=== PATIENT | female | born 1940 | race Caucasian/White ===

== ENCOUNTER 2016-12-04 13:33 | Emergency (ER) | payer MEDICARE ==
[2016-12-04 14:40] VITALS: BP 185/94
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
== END 2016-12-04 15:55 | disposition home or self-care (01) ==
LOC: JP.ED 13:33
DX: S40.021A Contusion of right upper arm, initial encounter (principal); Z87.891 Personal history of nicotine dependence; E78.00 Pure hypercholesterolemia, unspecified; I10 Essential (primary) hypertension; Z98.49 Cataract extraction status, unspecified eye; Z79.899 Other long term (current) drug therapy; Z91.018 Allergy to other foods; Y04.2XXA Assault by strike against or bumped into by another person, initial encounter
CPT/HCPCS: 99283

== ENCOUNTER 2019-11-24 13:52 | Emergency (ER) | payer MEDICARE ==
[2019-11-24] MEDS ORDERED: Lidocaine 1% with EPINEPHrine 1:100,000 50 ML MDV SUBCUT STA (14:59)
[2019-11-24] MEDS ORDERED: Bacitracin Oint 1 GM U/D Packet TOP ONE (14:59)
--- NOTE | 2019-11-24 15:04 | EDM.PDOC ---
ED HPI GENERAL MEDICAL PROBLEM - General Chief Complaint: ENT Problem Stated Complaint: BLOODY NOSE FELL Time Seen by Provider: 11/24/19 14:48 Source of Information: Reports: Patient, Family, RN Notes Reviewed History Limitations: Reports: No Limitations - History of Present Illness INITIAL COMMENTS - FREE TEXT/NARRATIVE: 79-year-old female presents emergency department today following a fall at home unfortunately she fell tripped at home on the carpet directly onto her face she was unable to catch herself she had a significant nosebleed but that was able to stop by the time she arrived to the emergency department she also has a small laceration on her lip is complaining of some neck pain and facial pain, denies any loss of consciousness - Related Data Allergies Allergy/AdvReac Type Severity Reaction Status Date / Time doxycycline Allergy Nausea and Verified 11/24/19 14:27 Vomiting Penicillins Allergy Hives Verified 12/04/16 14:55 mixed seafoods Allergy Nausea and Uncoded 12/04/16 14:55 Vomiting Home Meds: Home Meds Losartan [Cozaar] 80 mg PO DAILY 12/04/16 [History] Fluticasone Propion/Salmeterol [Wixela 500-50 Inhub] 1 puff INH BEDTIME 11/24/19 [History] Montelukast Sodium 1 tab PO DAILY 11/24/19 [History] Past Medical History HEENT History: Reports: Cataract Other HEENT History: Macular hole closed by surgery Cardiovascular History: Reports: High Cholesterol, Hypertension Respiratory History: Reports: Bronchitis, Recurrent 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: - Past Surgical History HEENT Surgical History: Reports: Cataract Surgery Social & Family History - Tobacco Use Smoking Status *Q: Never Smoker - Caffeine Use Caffeine Use: Reports: Coffee ED ROS GENERAL - Review of Systems Review Of Systems: See Below Constitutional: Reports: No Symptoms HEENT: Reports: Nosebleed Respiratory: Reports: No Symptoms Cardiovascular: Reports: No Symptoms GI/Abdominal: Reports: No Symptoms Musculoskeletal: Reports: No Symptoms Skin: Reports: No Symptoms ED EXAM, UPPER BACK/NECK PAIN - Physical Exam Exam: See Below Text/Narrative:: Primary survey GCS 15 airways open patent and clear lungs are clear to auscultation bilaterally cardiovascular demonstrates regular rate and rhythm S1- S2 Secondary survey General: Female, not in any distress GCS 15, alert and oriented x3 HEENT: head is ecchymosis is appreciated around both eyes as well as the bridge of the nose normocephalic, eyes pupils equal round reactive to light, sclera clear no conjun ctivitis appreciated extraocular eye movements intact. Ears tympanic membranes clear and spence landmarks and light reflex are present bilaterally canals are clear. Nose no septal deviation, nares are clear, no blood present. Mouth mucosa is moist and pink no erythema or exudate noted in soft palate, tongue is midline uvula is midline, dentition is intact small half centimeter laceration is appreciated superior lip right side. Neck: Supple no thyromegaly no tracheal deviation. NO posterior midline C-spine tenderness however the neck is painful with movement NO evidence of intoxication GCS > 14 No focal neurological deficit NO distracting injury Nodes: Cervical nodes subclavicular nodes nontender no palpable lymphadenopathy noted. Lungs: clear to auscultation bilaterally with symmetrical respirations, no adventitious noise appreciated. CV: Regular rate and rhythm S1 and S2 appreciated no murmurs rubs or gallops noted. Abdomen: Soft, nontender, no palpable masses or organomegaly appreciated, no distention no guarding bowel sounds are present, [scars ]. Neuro: Cranial nerves II test with pupillary light reflex 4 mm to 2 mm bilaterally, CN III test pupillary constriction, lid elevation and eye abduction bilaterally, CN IV downward movement of eyes bilaterally, CN V good jaw movement, CN lateral deviation of the eyes bilaterally to finger movement, CN VII symmetrical smile shows teeth without difficulty, CN VIII pass finger rub to ears bilaterally, CN IX adequate voice and tone, CN X adequate voice and tone no difficulty swallowing, CN XI can shrug shoulders without difficulty, CN XII can stick tongue out without difficulty, cranial nerves II to XII intact as tested, Skin: Warm and dry, intact Extremities: No lower extremity edema appreciated, pedal pulse is +2. ED LACERATION/WOUND PROCEDURES - Laceration/Wound Repair Other Laceration/Wound Length In cm: 0.5 Appearance: Subcutaneous, Irregular Anesthetic Type: Local Local Anesthesia - Lidocaine (Xylocaine): 1% with EPI Local Anesthetic Volume: 1cc Skin Prep: Saline Saline Irrigation Total cc's: 30 Wound Exploration, Debridement, Revision: Wound Explored, In a Bloodless Field, Explored to Base Suture Size: 5-0 # of Sutures: 1 Suture Type: Interrupted, Other (Vicryl) Sterile Dressing Applied: Nurse Tetanus Status Addressed: Yes Complications: None Course - Vital Signs Last Recorded V/S: Last Vital Signs Temp 97.3 F 11/24/19 14:37 Pulse 85 11/24/19 14:37 Resp 18 11/24/19 14:37 BP 191/93 H 11/24/19 14:37 Pulse Ox 100 11/24/19 14:37 - Orders/Labs/Meds Meds: Medications Discontinued Medications Generic Name Dose Route Start Last Admin Trade Name John PRN Reason Stop Dose Admin Bacitracin 1 dose 11/24/19 14:59 11/24/19 15:08 Bacitracin Oint 1 Gm TOP 11/24/19 15:00 1 dose ONETIME ONE Administration Lidocaine/Epinephrine 20 ml 11/24/19 14:59 11/24/19 15:07 Xylocaine 1% With Epinephrine 1:100,000 SUBCUT 11/24/19 15:00 20 ml NOW STA Administration Departure - Departure Time of Disposition: 16:50 Disposition: Home, Self-Care 01 Condition: Fair Clinical Impression: Nasal bones, closed fracture Qualifiers: Encounter type: initial encounter Qualified Code(s): S02.2XXA - Fracture of nasal bones, initial encounter for closed fracture Head injury Qualifiers: Encounter type: initial encounter Qualified Code(s): S09.90XA - Unspecified injury of head, initial encounter Lip laceration Qualifiers: Encounter type: initial encounter Qualified Code(s): S01.511A - Laceration without foreign body of lip, initial encounter - Discharge Information Instructions: Laceration Care, Adult Referrals: PCP,None [Primary Care Provider] - Forms: ED Department Discharge Additional Instructions: Use Tylenol Motrin as needed for pain control recommend follow-up with primary care in the next 3 to 5 days for reevaluation at which time her sutures could be removed, follow the wound care instruction sheet Sepsis Event Note (ED) - Evaluation Sepsis Screening Result: No Definite Risk - Focused Exam Vital Signs: Vital Signs Temp Pulse Resp BP Pulse Ox 11/24/19 14:37 97.3 F 85 18 191/93 H 100 11/24/19 14:23 97.3 F 85 18 191/93 H 100 - Assessment/Plan Plan: Assessment Acuity = acute Site and laterality = head trauma, mildly comminuted nasal bone fracture on the right, lip laceration Etiology = secondary to trauma Manifestations = none Location of injury = Home Lab values = CT scan describes fracture above Plan I did review films with her provided her disc have her follow-up with primary care in the next 3 to 5 days for reevaluation suture removal in 3 to 5 days This note was dictated using [employer] voice recognition software please call with any questions on syntax or grammar.
--- NOTE | 2019-11-24 16:21 | CRLCT ---
INDICATION : Trauma TECHNIQUE : Noncontrast CT scan of brain. FINDINGS: No acute intra or extra-axial hemorrhage. The ventricles and sulci are normal size, shape and configuration. No visualized intracranial mass or additional abnormal attenuation. Bony calvarium is normal. IMPRESSION : No significant intracranial radiographic abnormality. Please note that all CT scans at this facility use dose modulation, iterative reconstruction, and/or weight-based dosing when appropriate to reduce radiation dose to as low as reasonably achievable. Dictated by Sidney Dejesus MD @ Nov 24 2019 4:13PM Signed by Dr. Sidney Dejesus @ Nov 24 2019 4:19PM
--- NOTE | 2019-11-24 16:25 | CRLCT ---
INDICATION: Facial trauma. TECHNIQUE: CT scan of the facial bones. No intravenous contrast. Sagittal and coronal reconstructions. Soft tissue and bone windows. FINDINGS: Osseous structures: There are bilateral minimally displaced slightly angulated / comminuted nasal fractures. These are at the distal portion of the nasal bone. No significant displacement. Soft tissues: Right anterior nasal soft tissue swelling and infra orbital preseptal soft tissue swelling. Orbits: Normal. Sinuses: Normal. IMPRESSION: 1. Mildly comminuted nondisplaced distal nasal fractures. 2. Extensive facial soft tissue swelling nasal and right infraorbital. Please note that all CT scans at this facility use dose modulation, iterative reconstruction, and/or weight-based dosing when appropriate to reduce radiation dose to as low as reasonably achievable. Dictated by Sidney Dejesus MD @ Nov 24 2019 4:23PM Signed by Dr. Sidney Dejesus @ Nov 24 2019 4:23PM
--- NOTE | 2019-11-24 16:25 | CRLCT ---
INDICATION: Trauma TECHNIQUE: CT cervical spine without contrast. COMPARISON: None FINDINGS: Vertebrae: Alignment is normal. There are no fractures or suspicious bony lesions. Discs and facet joints: Multilevel disc space narrowing and spurring extending from C3 through C7. Multilevel degenerative hypertrophic facet arthropathy noted throughout the cervical spine, most prominent on the right at C3-4 and on the left at C4-5. Extraspinal findings: No paraspinal soft tissue mass. Scarring at the right apex. IMPRESSION: No cervical spine fracture. Please note that all CT scans at this facility use dose modulation, iterative reconstruction, and/or weight-based dosing when appropriate to reduce radiation dose to as low as reasonably achievable. Dictated by Randall Kan MD @ Nov 24 2019 4:19PM Signed by Dr. Randall Kan @ Nov 24 2019 4:23PM
[2019-11-24 17:05] VITALS: BP 186/91; PULSE 79
== END 2019-11-24 17:25 | disposition home or self-care (01) ==
LOC: JP.ED 13:52
DX: S02.2XXA Fracture of nasal bones, initial encounter for closed fracture (principal); S01.511A Laceration without foreign body of lip, initial encounter; I10 Essential (primary) hypertension; Z88.0 Allergy status to penicillin; Z91.013 Allergy to seafood; Z88.1 Allergy status to other antibiotic agents; W01.0XXA Fall on same level from slipping, tripping and stumbling without subsequent striking against object, initial encounter; Y92.009 Unspecified place in unspecified non-institutional (private) residence as the place of occurrence of the external cause
CPT/HCPCS: 12011; 70450; 70486; 72125; 99283; 99283-25